=== PATIENT | female | born 1985 | race Caucasian/White ===

== ENCOUNTER 2021-12-21 09:35 | Inpatient (IN) | payer OTHER, SELFPAY ==
[2021-12-21] VITALS (38 sets, daily range): BP systolic 104–137; BP diastolic 57–81; PULSE 66–114; RESP 18; TEMP 36.4–37; O2SAT 81–100; BMI 29.7
[2021-12-21 08:35] LABS: ROM Internal Control Test YES-OK TO RESULT pt. (Internal QC); ROM Patient Test Negative (Negative)
[2021-12-21] MEDS: Lactated Ringers 1,000 ML 999 ML IV (09:45)
[2021-12-21 10:14] LABS: Absolute Neutrophil Count 9.1 X10^3/uL (2.0-7.7); Basophil# 0.06 X10^3/uL; Basophil% 0.5 % (0-1); Eosinophil# 0.08 X10^3/uL; Eosinophils% 0.7 % (0-5); Hematocrit 36.2 % (37-47); Hemoglobin 11.7 g/dL (12.0-15.0); Lymphocyte % 12.4 % (19-41); Mean Corp Hgb Conc 32.3 g/dL (32-36); Mean Corpuscular Hgb 25.5 pg (27.0-32.0); Mean Corpuscular Volume 78.9 fL (81-99); Mean Platelet Vol. 10.9 fl (6.2-12.0); Monocyte# 0.93 X10^3/uL; Monocyte% 7.7 % (0-10); NRBC Flagged by Analyzer 0 % (0-5); Neutrophil # 9.08 X10^3/uL (2.7-7.7); Neutrophil % 74.8 % (47-70); Platelet Count 269 K/mm3 (150-450); RBC Distribution Width CV 14.6 % (11.6-14.6); RBC Distribution Width SD 41.2 fl (35.1-43.9); Red Blood Count 4.59 M/mm3 (4.2-5.4); White Blood Count 12.1 K/mm3 (4.4-11.0)
[2021-12-21] MEDS: Lactated Ringers 500 ML 999 ML IV (10:35)
[2021-12-21] MEDS: fentaNYL-bupivacaine (epidural) 100 ML BAG EPIDURAL ×2 (11:27→15:32)
[2021-12-21] MEDS: Acetaminophen 500 MG Tablet PO (11:59)
[2021-12-21] MEDS: Oxytocin 30 units/NS 500 ml 30 UNITS/500 ML IV.SOLN IV (12:20)
[2021-12-21] MEDS: Mag Hydrox/Al Hydrox/Simeth 30 ML UDC PO (13:39)
[2021-12-21] MEDS: Penicillin G 3,000,000 Units 50 ML 100 UNITS IV (14:13)
[2021-12-21] MEDS: Lactated Ringers 1,000 ML 200 ML IV (14:16)
[2021-12-21] MEDS: Oxytocin 30 units/NS 500 ml 30 UNITS/500 ML IV.SOLN 334 UNITS IV (16:22)
--- NOTE | 2021-12-21 16:36 | OP.PCM_ITS ---
Assessment & Plan (1) 39 weeks gestation of : (2) Active labor at term: (3) (spontaneous vaginal delivery): (4) GBS (group B Streptococcus carrier), +RV culture, currently : Maternal Data Information Final DORIAN: 12/25/21 Gestational age: 39 3/7 Vaginal Delivery Maternal Presentation Maternal Presentation: Active Labor Operative Information Date of Procedure: 12/21/21 Pre-Operative Diagnosis: labor Post-Operative Diagnosis: same Surgery / Procedure Performed: Spontaneous Vaginal Delivery twisting department end finder #1: [email or web address] Type of Anesthesia: Epidural Special Medications: none Estimated Blood Loss: 200 Time of Delivery: 16:20 Findings Description of Procedure: A vigorous male was delivered MARLIN over a second-degree perineal laceration. The remainder the was delivered with maternal pushing and gentle traction only in less than 15 seconds. The Pitocin infusion was initiated for active management of the third stage. The cord was clamped and cut after 1 minute. The infant was attended to by the waiting nursing staff. The placenta was delivered spontaneously and intact. The cervix and vagina were intact. The second-degree perineal laceration was repaired with 3-0 Vicryl suture in a running standard fashion. Sponge and needle counts were correct. A vaginal sweep was completed by me. Presentation: MARLIN Amniotic Membrane Rupture Type: Artificial Amniotic Fluid Description: Clear Placental Delivery Description: Spontaneous Placenta Disposition: [facility] Cord Vessel Description: 3 Vessels Cord Entanglement: None Infant A Gender: Male (1 minute): 9 (5 minute): 9 Delayed Cord Clamping: Yes Post Vaginal Delivery Medications Given After Delivery: IV Pitocin Episiotomy Description: None Laceration: 2nd degree Complication Complications: None
--- NOTE | 2021-12-21 16:39 | HP.PCM.OB_ITS ---
HPI - General General Date of Admission: 12/21/21 HPI Narrative ROMAN BARTLETT, is a 36 F who presents c/o ctxs starting at 3 am worsening in intensity. No VB. Maternal Data Information Final DORIAN: 12/25/21 Gestational age: 39 3/7 PFSH PFS Medical History (Updated 12/21/21 @ 16:[address] Mariangel Pan MD) Headache Infertility Home Medications Vitamin 1 ea PO DAILY 11/01/16 [History Last Taken 12/20/21 21:30 1 tab] fluticasone propionate [Flonase] 2 spray INTRANASAL DAILY 12/21/21 [History Last Taken 12/21/21 06:30 2 sprays] magnesium 200 mg PO DAILY 12/21/21 [History Last Taken 12/20/21 21:30 1 tab] Allergy/AdvReac Type Severity Reaction Status Date / Time egg Allergy Unknown Verified 11/01/16 04:45 Surgical History (Updated 12/21/21 @ 10:15 by Selam Bryant) History of gynecologic surgery Hx of tonsillectomy [place] teeth extracted Social History Smoking Status: Never smoker History Elective abortions Hx Para 1 Spontaneous abortions Hx # Term Pregnancies Ectopic pregnancies Hx # Pregnancies Multiple births # of living children ROS Constitutional Constitutional: Denies fatigue, fever(s) or malaise Eyes Eyes: Denies change in vision ENT HEENT: Denies dizziness or headache(s) Cardiovascular Cardiovascular: Denies chest pain, dyspnea or lightheadedness Respiratory/Chest Respiratory/Chest: Denies cough or dyspnea Gastrointestinal Gastrointestinal: Denies change in bowel habits Genitourinary Genitourinary: Denies burning urination or genital lesions Integumentary Integumentary: Denies rash Neurologic Neurologic: Denies confusion, dizziness, headache(s), numbness or weakness Vital Signs Vital Signs Vital Signs: 12/21/21 07:53 12/21/21 10:29 12/21/21 10:38 Temperature Temperature Source Pulse Rate 85 114 H 83 Blood Pressure 123/80 H BP Systolic 123 BP Diastolic 80 Pulse Ox 81 100 12/21/21 10:40 12/21/21 10:43 12/21/21 10:49 Temperature Temperature Source Pulse Rate 74 94 66 Blood Pressure 137/78 H 132/75 H BP Systolic 137 132 BP Diastolic 78 75 Pulse Ox 98 93 12/21/21 10:51 12/21/21 10:53 12/21/21 10:54 Temperature Temperature Source Pulse Rate 73 80 76 Blood Pressure 116/68 111/64 BP Systolic 116 111 BP Diastolic 68 64 Pulse Ox 100 12/21/21 10:58 12/21/21 10:59 12/21/21 11:03 Temperature Temperature Source Pulse Rate 84 82 92 Blood Pressure 114/72 112/66 BP Systolic 114 112 BP Diastolic 72 66 Pulse Ox 100 12/21/21 11:04 12/21/21 11:08 12/21/21 11:15 Temperature Temperature Source Pulse Rate 78 74 82 Blood Pressure 109/64 123/73 H BP Systolic 109 123 BP Diastolic 64 73 Pulse Ox 100 12/21/21 11:16 12/21/21 11:17 12/21/21 11:49 Temperature Temperature Source Pulse Rate 74 90 Blood Pressure 122/73 H BP Systolic 122 BP Diastolic 73 Pulse Ox 100 100 12/21/21 12:18 12/21/21 12:49 12/21/21 13:38 Temperature 97.5 F L Temperature Source Pulse Rate 74 77 Blood Pressure 126/77 H 129/77 H BP Systolic 126 129 BP Diastolic 77 77 Pulse Ox 100 100 12/21/21 14:10 12/21/21 15:13 12/21/21 15:14 Temperature 98.6 F Temperature Source Temporal Pulse Rate 80 82 Blood Pressure 118/73 113/68 113/68 BP Systolic 118 113 113 BP Diastolic 73 68 68 Pulse Ox 100 12/21/21 16:02 12/21/21 16:36 Temperature 98.3 F Temperature Source Temporal Pulse Rate 82 87 Blood Pressure 125/76 H 122/73 H BP Systolic 125 122 BP Diastolic 76 73 Pulse Ox 100 Weight Weight: 83.4 kg Body Mass Index (BMI) 29.7 Physical Exam Const alert and no apparent distress General Appearance: cooperative HEENT normocephalic Resp normal respiratory effort Cardio regular rate GI soft to palpation GI Narrative: gravid, nontender, appropriate for gestational age Extremity no calf tenderness General Extremity: edema Skin no wounds Rashes: No rashes noted Psych activity/motor behavior normal Labs Labs Labs: Blood Type AB POSITIVE Antibody Screen NEGATIVE Hct 36.2 % (37-47) L Hgb 11.7 g/dL (12.0-15.0) L Rubella IgG Antibody 212.4 IU/mL Rhogam given: No Assessment & Plan (1) GBS (group B Streptococcus carrier), +RV culture, currently : (2) Active labor at term: (3) 39 weeks gestation of : PLAN: Estimated weight is less than 4500 g clinically and pelvis is clinically adequate to expect vaginal delivery. GBS prophylaxis initiated. May have epidural, nitrous or IV medications as needed for pain control.
[2021-12-21] MEDS: Ibuprofen 600 MG Tablet PO (20:31)
[2021-12-22] MEDS: Acetaminophen 500 MG Tablet 1000 MG PO ×2 (00:29→09:44)
[2021-12-22 01:00] VITALS: BP 130/68; PULSE 79; RESP 16; TEMP 36.8
[2021-12-22 04:25] VITALS: BP 124/73; PULSE 74; RESP 18; TEMP 36.7
[2021-12-22] MEDS: Ibuprofen 600 MG Tablet PO ×2 (04:35→09:46)
[2021-12-22 09:00] VITALS: BP 113/75; PULSE 84; RESP 16; TEMP 36.6
--- NOTE | 2021-12-22 09:33 | PCM.PN.OB ---
Subjective Subjective Some cramping overnight. Average lochia. Objective Data Objective Data Vital Signs: Vital Signs Temp Pulse Resp BP Pulse Ox 98.0 F 74 18 124/73 H 99 12/22/21 04:25 12/22/21 04:25 12/22/21 04:25 12/22/21 04:25 12/21/21 20:30 Oxygen Delivery Method Room Air Weight: 83.4 kg Body Mass Index (BMI) 29.7 Intake & Output: Intake and Output for Last 24 Hours 12/20/21 12/21/21 12/22/21 23:59 23:59 23:59 Intake Total 2885.87 / 2885.87 Output Total 1400 / 1400 Balance 1485.87 / 1485.87 Lab / Micro Data Result Diagrams: 12/21/21 09:45 Labs: Laboratory Results - last 24 hr 12/21/21 09:45: WBC 12.1 H, RBC 4.59, Hgb 11.7 L, Hct 36.2 L, MCV 78.9 L, MCH 25.5 L, MCHC 32.3, RDW Std Deviation 41.2, RDW Coeff of Mesha 14.6, Plt Count 269, MPV 10.9, Immature Gran % (Auto) 3.900 H, Neut % (Auto) 74.8 H, Lymph % (Auto) 12.4 L, [place] % (Auto) 7.7, Eos % (Auto) 0.7, Baso % (Auto) 0.5, Absolute Neuts (auto) 9.1 H, Absolute Lymphs (auto) 1.50, Nucleated RBC % 0 12/21/21 09:45: Blood Type AB POSITIVE, Antibody Screen NEGATIVE Micro: Microbiology 12/21/21 09:55 Nasal Secretion SARS-CoV-2 Antigen (Rapid) - Final Physical Exam Const alert and no apparent distress Narrative: Fundus firm, below umbilicus. Assessment & Plan (1) (spontaneous vaginal delivery): PLAN: PPD #1 s/p doing well routine care and doing well
--- NOTE | 2021-12-22 09:35 | PCM.DC.SUM ---
Providers Date of Admission: 12/21/21 Primary Care Physician: Dr. Dontae Scott MD Reason For Visit: VAG DELIVERY Diagnosis Discharge Diagnosis (1) (spontaneous vaginal delivery): Status: Acute Code(s): O80 - Encounter for full-term uncomplicated delivery Medications at Discharge Home Medications Vitamin 1 ea PO DAILY 11/01/16 fluticasone propionate [Flonase] 2 spray INTRANASAL DAILY 12/21/21 magnesium 200 mg PO DAILY 12/21/21 Hospital Course Operations - ( on 12/21/21) Procedures None Summary of Care Provided Hospital Course: Patient admitted in labor. . D/c home on PPD#1 w/ routine instructions Weight / BMI Weight Weight: 83.4 kg Body Mass Index (BMI) 29.7 ABG / Lab / Microbiology Data Result Diagrams: 12/21/21 09:45 Laboratory: Laboratory Results - last 24 hr 12/21/21 09:45: WBC 12.1 H, RBC 4.59, Hgb 11.7 L, Hct 36.2 L, MCV 78.9 L, MCH 25.5 L, MCHC 32.3, RDW Std Deviation 41.2, RDW Coeff of Mesha 14.6, Plt Count 269, MPV 10.9, Immature Gran % (Auto) 3.900 H, Neut % (Auto) 74.8 H, Lymph % (Auto) 12.4 L, [place] % (Auto) 7.7, Eos % (Auto) 0.7, Baso % (Auto) 0.5, Absolute Neuts (auto) 9.1 H, Absolute Lymphs (auto) 1.50, Nucleated RBC % 0 12/21/21 09:45: Blood Type AB POSITIVE, Antibody Screen NEGATIVE Microbiology: Microbiology 12/21/21 09:55 Nasal Secretion SARS-CoV-2 Antigen (Rapid) - Final D/C Instructions May resume sexual activity in: 6 weeks Please Follow Up With: Mariangel Pan MD When: Follow up with our office in 1-2 and 6 weeks or as needed. [phone] Meaningful Use Info Meaningful Use Diagnoses (Choose all that apply): None applicable Discharge Plan Admission Admit Date/Time: 12/21/21 09:35 Primary Reason for Your Visit: Vaginal delivery Attending Provider: Mariangel Pan Primary Care Provider: Dontae Scott Discharge Orders/Prescriptions Prescriptions: No Action Vitamin 1 EACH tablet 1 ea PO DAILY RF: 0 fluticasone propionate [Flonase] 50 mcg/actuation [place],Suspension 2 spray INTRANASAL DAILY RF: 0 magnesium 200 mg Tablet 200 mg PO DAILY RF: 0 Referrals / Follow Up: Dontae Scott MD [Primary Care Provider] - Disposition Disposition (needs filled in before D/C Order can be placed): Home, Self Care
[2021-12-22] MEDS: Senna/Docusate Sodium 1 Tablet PO (09:44)
[2021-12-22] MEDS: Hydrocortisone 2.5% Crm 1 APPLIC TOPICAL (09:47)
[2021-12-22 14:04] VITALS: BP 125/77; PULSE 90; RESP 20; TEMP 36.5
== END 2021-12-22 19:00 | disposition home or self-care (01) | DRG 807 ==
LOC: WPOUT 09:36 → WP 09:38
PROVIDERS: Obstetrics & Gynecology; Admitting Provider Obstetrics & Gynecology; PCP Family Medicine; Referring Provider Obstetrics & Gynecology; Visit Provider Obstetrics & Gynecology
DX: O70.1 Second degree perineal laceration during delivery (principal); Z37.0 Single live birth; O99.824 Streptococcus B carrier state complicating childbirth; Z3A.39 39 weeks gestation of pregnancy; Z79.899 Other long term (current) drug therapy
CPT/HCPCS: 59050; 84112; 85025; 86850; 86900; 86901; 87426; 99218; J7120; G0378